=== PATIENT | female | born 1970 | race Hispanic/Latino ===

== ENCOUNTER 2019-04-19 21:17 | Observation (INO) | payer SELFPAY ==
[2019-04-19] MEDS ORDERED: Metoclopramide HCl 10 MG/2 ML VIAL ONE (21:54)
[2019-04-19] MEDS ORDERED: Labetalol HCl 100 MG/20 ML VIAL ONE (21:54)
[2019-04-19] MEDS ORDERED: Acetaminophen 500 MG TAB ONE (21:54)
[2019-04-19] MEDS ORDERED: Sodium Chloride 0.9% 100 ML ONE (21:54)
[2019-04-19] MEDS ORDERED: diphenhydrAMINE 50 MG/ML VIAL ONE (21:54)
[2019-04-19 22:09] LABS: #Basophils 0.1 thou/uL (0.0-0.2); #Eosinphils 0.3 thou/uL (0.0-0.7); #Lymphocytes 2.6 thou/uL (1.20-3.40); #Monocytes 0.6 thou/uL (0.11-0.59); #Neutrophils 5.1 thou/uL (1.40-6.50); %Basophils 0.8 % (0.0-1.0); %Eosinophils 3.7 % (0.0-10.0); %Lymphocytes 29.4 % (21.0-51.0); %Monocytes 7.1 % (0.0-10.0); %Neutrophils 58.9 % (42.0-75.0); Hemoglobin 10.2 g/dL (12.0-16.0); MDiff Complete? YES; Mean Corpuscular HGB CONC 31.1 g/dL (32.0-36.0); Mean Corpuscular Hemoglobin 21.4 pg (27.0-31.0); Mean Corpuscular Volume 68.8 fL (78.0-98.0); Mean Platelet Volume 10.1 fL (7.4-10.4); Microcytosis SLIGHT = 6-15 cells (100X) (0-5/hpf); Platelet Count 374 thou/uL (130-400); Platelet Morphology Comment Appears Adequate; RBC Distribution Width 19.5 % (11.5-14.5); Red Blood Cell (RBC) Count 4.78 mill/uL (4.20-5.40); White Blood Cell (WBC) Count 8.7 thou/uL (4.8-10.8)
[2019-04-19 22:18] LABS: ALT (SGPT) 15 U/L (8-55); AST (SGOT) 19 U/L (5-34); Albumin 4.4 g/dL (3.5-5.0); Alkaline Phosphatase 64 U/L (40-110); Anion Gap 12 mmol/L (10-20); BUN (Urea Nitrogen) 9 mg/dL (7.0-18.7); Bilirubin, Total 0.3 mg/dL (0.2-1.2); CK (CPK) 173 U/L (29-168); Calc. Creatinine Clearance 0 mL/min (70-130); Calcium 9.5 mg/dL (7.8-10.44); Carbon Dioxide 25 mmol/L (22-29); Chloride 104 mmol/L (98-107); Estimated GFR-MDRD 85; Globulin 3.1 g/dL (2.4-3.5); Glucose 103 mg/dL (70-105); Potassium 3.5 mmol/L (3.5-5.1); Protein, Total 7.5 g/dL (6.0-8.3); Sodium 137 mmol/L (136-145)
--- NOTE | 2019-04-19 23:02 | CT ---
NONCONTRAST CT HEAD: 04/19/10 HISTORY: Hypertension. Headache. COMPARISON: 08/11/15. FINDINGS: There are multifocal areas of diminished attenuation again seen through the [id number] and invo lving the subcortical white matter which again may be related to either extensive chronic small vesse l ischemic changes or demyelinating process. There is no evidence of an acute cortical infarction or hemorrhage. There is a stable calcification on the right basal ganglia. Ventricular system is normal in size, shape and position. There is mucosa thickening in bilateral maxillary as well as involving the ethmoid air cells. Mastoid air cells are clear. The previously noted left orbital mass/lesion is again seen although does appear smaller in size comp ared to prior study of 2016. This is better assessed on prior MRI brain in 2016. IMPRESSION: 1. No acute intracranial abnormality demonstrated. 2. Multifocal areas of diminished attenuation in the periventricular and subcortical white matte r which again may be related to advanced chronic small vessel ischemic changes versus demyelinating p rocess especially given patient's age. These findings were noted on the prior exam. 3. Left orbital lesion again seen and previously evaluated on MRI of brain in 2016. 4. Sinus disease. POS: OFF
[2019-04-20] MEDS ORDERED: Senokot S 8.6-50 MG TAB PO PRN (01:55)
[2019-04-20 02:53] VITALS: BMI 35.9
[2019-04-20] MEDS ORDERED: Labetalol HCl 100 MG/20 ML VIAL SLOW IVP PRN (03:25)
[2019-04-20 06:48] LABS: #Eosinphils 0.3 thou/uL (0.0-0.7); #Lymphocytes 2.4 thou/uL (1.20-3.40); #Monocytes 0.5 thou/uL (0.11-0.59); #Neutrophils 3.9 thou/uL (1.40-6.50); %Basophils 0.7 % (0.0-1.0); %Eosinophils 3.8 % (0.0-10.0); %Lymphocytes 33.3 % (21.0-51.0); %Monocytes 7.6 % (0.0-10.0); %Neutrophils 54.6 % (42.0-75.0); Hemoglobin 9.6 g/dL (12.0-16.0); Mean Corpuscular HGB CONC 31.2 g/dL (32.0-36.0); Mean Corpuscular Hemoglobin 21.7 pg (27.0-31.0); Mean Corpuscular Volume 69.5 fL (78.0-98.0); Mean Platelet Volume 10.9 fL (7.4-10.4); Platelet Count 349 thou/uL (130-400); RBC Distribution Width 19.9 % (11.5-14.5); Red Blood Cell (RBC) Count 4.42 mill/uL (4.20-5.40); White Blood Cell (WBC) Count 7.1 thou/uL (4.8-10.8)
[2019-04-20 06:59] LABS: Reticulocyte Count 1.4 % (0.5-1.5)
[2019-04-20 07:14] LABS: Anion Gap 11 mmol/L (10-20); BUN (Urea Nitrogen) 10 mg/dL (7.0-18.7); Calc. Creatinine Clearance 157 mL/min (70-130); Calcium 8.3 mg/dL (7.8-10.44); Carbon Dioxide 24 mmol/L (22-29); Chloride 107 mmol/L (98-107); Estimated GFR-MDRD Greater than 90; Glucose 92 mg/dL (70-105); Iron 19 ug/dL (50-170); Potassium 3.7 mmol/L (3.5-5.1); Sodium 138 mmol/L (136-145)
--- NOTE | 2019-04-20 07:22 | HP ---
CHIEF COMPLAINT: Headache. HISTORY OF PRESENT ILLNESS: The patient is a 48-year-old female with a past medical history of hypertension and obesity, who presents to the hospital with complaints of headache and tingling on her face x1 day. The patient's daughter is at the bedside, who translated, stated that the patient has been having headache all day today. She has not tried any [id number] medications, however, has not revealed her blood pressure medications for the past few days. She denies any fevers or chills; however, stated having numbness and tingling to her face. Currently, she feels much better. She does have mild slight headache. REVIEW OF SYSTEMS: All negative except for the ones mentioned above in the HPI. PAST MEDICAL HISTORY: History of hypertension and anemia. PAST SURGICAL HISTORY: She has had no surgical history. SOCIAL HISTORY: She denies any alcohol use, drug use, or smoking history. She is a full code. Lives with her family. ALLERGIES: SHE HAS NO KNOWN DRUG ALLERGIES. MEDICATIONS: She actually did not get her medications refilled and her medications per her reconciliation only indicates lisinopril and hydrochlorothiazide 20/12.5, Lyrica 75 mg b.i.d., and Zoloft 50 mg daily. FAMILY HISTORY: History of hypertension. PHYSICAL EXAMINATION: VITAL SIGNS: Temperature of 98.8, respirations 22, blood pressure 218/105 initially, 99% on room air. GENERAL: She is awake, alert, and oriented x3. Does not appear in distress. HEENT: Normocephalic, atraumatic. No lymphadenopathy noted. Pupils are equal and reactive to light. CV: S1 and S2 present. No murmurs, rubs, or gallops. LUNGS: Clear to auscultation. No rhonchi or wheezes noted. ABDOMEN: Obese. Bowel sounds present x2. EXTREMITIES: No edema. Pedal pulses present x2. NEUROVASCULAR: There were no focal deficits noted. SKIN: No cuts, lesions, or bruises noted. LABORATORY RESULTS: As of the following; WBCs 8.7, hemoglobin of 10.2, hematocrit of 32.9, MCV of 68, platelets of 374. Chemistry; sodium 137, potassium of 3.5, BUN of 9, creatinine 0.73. Troponin x1 is negative. She had a CT head, which indicated no acute intracranial abnormalities; however, she did have a multifocal airs of diminished attenuation of the periventricular and subcortical white matter, which again may be related to advanced chronic small-vessel ischemia, also left orbital lesion again seen in the previous evaluation of the MRI. ASSESSMENT AND PLAN: The patient is a very pleasant 48-year-old female, who presents to the hospital with a headache. 1. Hypertensive urgency. The patient stated that she ran out of her medications and according to the daughter, she does this several times. We will restart her blood pressure medications and put some p.r.n.'s. I have advised the patient and the family member that this is very important and she understands the risk of stroke and possibly even renal failure in the future. All of her symptoms have currently resolved except for the minor headache. 2. Obesity. She has educated on diet weight loss. 3. She does have this abnormality seen in her left orbital lesion that is noted. I did speak with the daughter. The daughter states that she has had that before and I recommended her to follow up with her primary for further investigation. 4. DVT prophylaxis. We will put the patient on SCDs and Lovenox. Job ID: [id number]
[2019-04-20] MEDS: Enoxaparin Sodium 40 MG/0.4 ML SYRINGE SC SCH (08:16)
[2019-04-20] MEDS: Pregabalin 75 MG CAP PO SCH ×2 (08:17→20:02)
[2019-04-20] MEDS: Lisinopril/Hydrochlorothiazide 20 mg/12.5 mg Tablet PO SCH (08:17)
[2019-04-20] MEDS: Acetaminophen 325 MG TAB PO PRN ×2 (08:18→16:41)
[2019-04-20] MEDS ORDERED: traMADol HCl 50 MG TAB PO PRN ×2 (12:21)
[2019-04-20] MEDS ORDERED: Ketorolac Tromethamine 30 MG/ML VIAL IVP PRN (14:21)
[2019-04-20] MEDS ORDERED: Ketorolac Tromethamine 30 MG/ML VIAL IVP SCH (14:30)
[2019-04-20] MEDS: Morphine 4 MG/ML VIAL SLOW IVP PRN ×2 (14:32→18:43)
[2019-04-21] MEDS ORDERED: Ondansetron ODT 4 MG TAB PO PRN (00:01)
[2019-04-21] MEDS ORDERED: Ondansetron PF 4 MG/2 ML Vial IVP PRN (00:01)
[2019-04-21 07:13] VITALS: TEMP 98
[2019-04-21] MEDS: Pregabalin 75 MG CAP PO SCH (07:39)
[2019-04-21] MEDS: Enoxaparin Sodium 40 MG/0.4 ML SYRINGE SC SCH (07:44)
[2019-04-21] MEDS: Lisinopril/Hydrochlorothiazide 20 mg/12.5 mg Tablet PO SCH (07:44)
[2019-04-21] MEDS ORDERED: Iron Sucrose Complex 200 MG in Sodium Chloride 0.9% 250 ML 250 ML IVPB SCH (10:45)
[2019-04-21 11:00] VITALS: BP 143/71
[2019-04-21] MEDS ORDERED: Iron, Sodium Ferric Gluconate 250 MG in Sodium Chloride 0.9% 250 ML 250 ML IVPB SCH (11:00)
--- NOTE | 2019-04-21 11:14 | DIS ---
DATE OF ADMISSION: 04/20/2019 DATE OF DISCHARGE: 04/21/2019 PRIMARY CARE PROVIDER: Jennifer Dejesus MD DISCHARGE DIAGNOSES: 1. Hypertensive urgency. 2. Iron deficiency. 3. Microcytic anemia. 4. Medication noncompliance. CONDITION: Condition of the patient on the day of discharge: Stable. I assessed Ms. Trejo on the day of discharge. She denies any headache. Vital signs are stable. S1 and S2 are heard, regular. Lungs are clear to auscultation bilaterally. DISCHARGE MEDICATIONS: 1. Ferrous sulfate 325 mg daily. 2. Lisinopril/hydrochlorothiazide 20/12.5 mg daily. HOSPITAL COURSE: Ms. Trejo is a pleasant 48-year-old lady, who was admitted to [facility] on April 20, 2019, for hypertensive urgency in the context of medication noncompliance. She also had an intractable headache. She improved with the pain medications and blood pressure medications. She also had microcytic anemia with hemoglobin of 9.6 on April 20. Her iron level was low at 19 and ferritin was less than 2. She has been started on iron supplements. She will receive iron infusion prior to discharge. She has been advised to follow up with her primary care provider. Many thanks for allowing me to participate in your patient's care. Please feel free to contact me with any questions or concerns. POST-DISCHARGE FOLLOWUP: With primary care provider in 3 to 5 days. Job ID: [id number]
== END 2019-04-21 15:30 | disposition home or self-care (01) ==
LOC: ERS 21:17 → INTOOBSV 04-20 01:36 → 2NO 04-20 01:36
PROVIDERS: ADMIT Internal Medicine; ATTEND Internal Medicine
DX: I16.0 Hypertensive urgency (principal); I10 Essential (primary) hypertension; D50.9 Iron deficiency anemia, unspecified; E66.9 Obesity, unspecified; Z68.35 Body mass index [BMI] 35.0-35.9, adult; Z79.899 Other long term (current) drug therapy; Z91.14 Patient's other noncompliance with medication regimen
CPT/HCPCS: 36415; 70450; 80048; 80053; 82550; 82728; 83540; 84484; 85025; 85046; 93005; 96365; 96366; 96372; 96375; 96376; G0378; J1200; J1650; J2270; J2765; J2916; J3490; J7050; Q0162